=== PATIENT | female | born 1985 | race American Indian/Alaskan Native ===

== ENCOUNTER 2017-01-31 03:01 | Emergency (ER) | payer MEDICAID ==
[~2017-01-31] VITALS: Ht 162.6 cm; Wt 60.0 kg
[2017-01-31] MEDS ORDERED: LORazepam 1MG TABLET ONE (04:23)
[2017-01-31] MEDS ORDERED: LORazepam 1MG TABLET PO ONE (04:30)
[2017-01-31 06:07] VITALS: BP 134/88
== END 2017-01-31 06:00 ==
LOC: ED 03:57
DX: F10.10 Alcohol abuse, uncomplicated (principal); F15.10 Other stimulant abuse, uncomplicated; Y90.9 Presence of alcohol in blood, level not specified; R06.00 Dyspnea, unspecified
CPT/HCPCS: 71010; 93005